=== PATIENT | male | born 1960 | race Caucasian/White ===

== ENCOUNTER 2020-07-12 09:31 | Day surgery (SDC) | payer OTHER ==
[~2020-07-12] VITALS: Ht 175.3 cm; Wt 92.6 kg
--- NOTE | 2020-07-12 12:06 | NUR ---
07/12/20 1206 HALI [place] PATIENT LEFT AMA, STATES THAT HE REFUSES TO USE THE DIAL A RIDE THAT WAS PROVIDED FOR HIM, PATIENT STATES THAT HE IS GOING TO [place] TO [facility] WHERE HE IS CURRENTLY STAYING, EDUCATION PROVIDED TO PATIENT ABOUT AMA AND RELATED POLICY, PATIENT VERBALIZED UNDERSTANDING, CONTINUED TO LEAVE
== END 2020-07-12 11:55 | disposition home or self-care (01) ==
LOC: ORSCSDS 09:31
PROVIDERS: Ophthalmology
PROC: 08RK3JZ Replacement of Left Lens with Synthetic Substitute, Percutaneous Approach (ICD-10-PCS; principal; 2020-07-12 11:15)
DX: H25.12 Age-related nuclear cataract, left eye (principal); F17.210 Nicotine dependence, cigarettes, uncomplicated
CPT/HCPCS: A9270; J2001; J2250; J3010; J3301; J7040; V2632